=== PATIENT | female | born 1995 | race Caucasian/White ===

== ENCOUNTER 2024-03-07 10:00 | Outpatient (CLI) | payer OTHER, SELFPAY ==
--- NOTE | ~2024-03-07 | XR_ITS ---
EXAMINATION: XR hysterosalpingogram DATE: 03/07/2024 13:42 CDT INDICATION: Infertility TECHNIQUE: Fluoroscopy was provided for a hysterosalpingogram performed by Dr. Brooks. FINDINGS: There is normal intraluminal morphology of the uterus. The fallopian tubes are normal in a ppearance and are widely patent, with free spill into the peritoneal cavity from both sides. IMPRESSION: 1. Normal hysterosalpingogram. The uterus demonstrates normal intraluminal morphology and both fall opian tubes are patent. Reviewed, dictated and finalized at location A. IMPRESSION: 1. Normal hysterosalpingogram. The uterus demonstrates normal intraluminal mo rphology and both fallopian tubes are patent.
[2024-03-07 10:50] LABS: Beta HCG Quantitative < 2.39 mIU/ML
--- NOTE | 2024-03-07 11:59 | P.OP_ITS ---
Procedure Note - Detailed Date of Procedure 03/07/24 Pre-op Diagnosis INFERTILITY Post-op Diagnosis Same Procedure Performed [facility] [place] Ryan Brooks MD Anesthesia None Findings Bilateral spill and fill. Description of Procedure Patient position in lithotomy position. Speculum inserted. Catheter inserted into uterine cavity. Balloon insufflated. Radiologist performed Fluoro and the dye was injected. Bilateral spill and fill noted. The balloon was deflated and dye instilled. Cavity normal. Patient tolerated procedure well. Estimated Blood Loss 0 Drains No Packing No Complications No immediate complications Condition Stable [facility] Billing Surgery - Charge Forward: Surgery Billing
== END 2024-03-07 10:01 | disposition home or self-care (01) ==
PROVIDERS: PCP Otolaryngology; Visit Provider Obstetrics & Gynecology
DX: N97.9 Female infertility, unspecified (principal)
CPT/HCPCS: 36415; 58340; 74740; 84702; Q9966

== ENCOUNTER 2025-01-22 15:38 | Outpatient (CLI) | payer BC, SELFPAY ==
--- NOTE | ~2025-01-22 | US_ITS ---
EXAMINATION: US OB <=14 wk fetus w TV DATE: 01/22/2025 22:38 CDT INDICATION: Early COMPARISON: 07/18/2024 TECHNIQUE: Real-time transabdominal obstetric ultrasound. FINDINGS: 1 Estimated date of delivery by last menstrual period is 08/24/2025 The uterus measures 9.4 x 5.2 x 6.8 cm. A gestational sac is identified within the uterus. A pole is identified, with a crown-rump length that measures 3.01 cm, corresponding to an appro ximate gestational age of 10 weeks and 0 days. cardiac activity is identified at a rate of 169 bpm. The right ovary measures 2.9 x 1.6 x 2.3 cm. The left ovary measures 4.3 x 2.5 x 2.6 cm. Estimated date of delivery by ultrasound is 08/21/2025 IMPRESSION: Single intrauterine gestation with an approximate gestational age of 10 weeks and 0 days, with cardiac activity identified. Reviewed, dictated and finalized at location A. IMPRESSION: Single intrauterine gestation with an approximate gestational age of 10 weeks a nd 0 days, with cardiac activity identified.
== END 2025-01-22 15:39 | disposition home or self-care (01) ==
PROVIDERS: PCP Student in an Organized Health Care Education/Training Program; Visit Provider Student in an Organized Health Care Education/Training Program
DX: Z34.90 Encounter for supervision of normal pregnancy, unspecified, unspecified trimester (principal)
CPT/HCPCS: 76801; 76817

== ENCOUNTER 2025-08-12 07:54 | Outpatient (RCR) | payer BC, SELFPAY ==
[2025-07-31 09:32] VITALS: BP 113/73; PULSE 80
--- NOTE | ~2025-08-12 | US_ITS ---
EXAMINATION: US OB BPP wo non-stress DATE: 08/12/2025 09:34 INDICATION: Encounter for supervision of normal . Third trimester. TECHNIQUE: Real-time pelvic ultrasound was performed. COMPARISON: Ultrasound 04/03/2025, 01/22/2025 FINDINGS: There is a single living fetus in vertex presentation. The placenta is anterior. heart rate is 157 beats per minute (bpm). There is bilateral renal pelviectasis measuring 1.1 cm on the right and 2.0 cm on the left. The amniotic fluid index is 8.3 cm, which is normal. Biophysical profile performed by the technologist: breathing (30 sec sustained breathing in 30 minutes): 2 out of 2 movement (3 gross body movements in 30 minutes): 2 out of 2 tone (one episode of sonltjk-uvlgzpvwu-angljnh limb movement): 2 out of 2 Amniotic fluid pocket (2 cm): 2 out of 2 Total score: 8 out of 8 IMPRESSION: 1. Single living fetus in vertex presentation. 2. Biophysical profile 8 out of 8. 3. Bilateral renal pelviectasis. Reviewed, dictated and finalized at location E.
[2025-08-12 08:34] VITALS: BP 127/72; PULSE 101
[2025-08-12 09:00] VITALS: BP 127/73; PULSE 101
--- NOTE | 2025-08-12 09:28 | PC.NURSE ---
BPP 05/24
== END 2025-08-12 12:00 | disposition home or self-care (01) ==
LOC: ANHOBOP 07:54
PROVIDERS: Visit Provider Student in an Organized Health Care Education/Training Program
DX: O36.8130 Decreased fetal movements, third trimester, not applicable or unspecified (principal); Z3A.36 36 weeks gestation of pregnancy
CPT/HCPCS: 59025; 76819

== ENCOUNTER 2025-08-14 08:42 | Outpatient (CLI) | payer BC, SELFPAY ==
--- OUTSIDE RECORDS SUMMARY | 2025-08-14 09:14 | XMS_ITS | Patient Health Record ---
Author Organization [facility] Address [address] [place] [address] Care Team Providers Care Linux Programmer Name Role Phone LORIE HARDIN Unavailable [phone] Josafat Flores Unavailable Unavailable Reason For Referral No Information Plan Of Treatment No Information
[2025-08-14 09:47] LABS: Hematocrit 36.2 % (37.0-47.0); Hemoglobin 11.8 g/dL (12.0-15.0); Mean Corpuscular HGB Conc 32.6 g/dl (32-36); Mean Corpuscular Hemoglobin 29.5 pg (26-34); Mean Corpuscular Volume 90.5 fl (80-100); Platelet Count Result 237 k/mm3 (150-375); Red Blood Count 4.00 M/mm3 (4.2-5.4); White Blood Count 9.6 K/mm3 (4.5-10.0)
[2025-08-14 10:36] LABS: Syphilis IgG/IgM Antibody Non-Reactive (Nonreactive)
== END 2025-08-14 08:43 | disposition home or self-care (01) ==
LOC: ANHLAB 08:46
PROVIDERS: Visit Provider Student in an Organized Health Care Education/Training Program
DX: Z34.93 Encounter for supervision of normal pregnancy, unspecified, third trimester (principal); Z3A.00 Weeks of gestation of pregnancy not specified
CPT/HCPCS: 36415; 85027; 86593; 86850; 86900; 86901

== ENCOUNTER 2025-08-15 05:27 | Inpatient (IN) | payer BC, SELFPAY ==
[2025-08-14 08:40] VITALS: BP 107/63; PULSE 93; RESP 16; TEMP 36.3; O2SAT 100
--- NOTE | 2025-08-14 15:59 | PM.IMHP ---
H&P: HPI History of Present Illness Date/Time: 08/14/25 15:59 Chief Complaint: Intrauterine at term large for gestational age Narrative: 30 yo G1 who presents at 39w who primary for suspected macrosomia. EFW of 4573 g at 37w. Discussed macrosomia at length. also complicated by IVF with transfer on 12/04/24. Fetus is also noted to have bilateral dilated renal calyces. Review of Systems Cardiovascular: Cardiovascular: Denies chest pain, Denies leg edema, Denies palpitations, Denies dyspnea and Denies dyspnea on exertion Respiratory: Respiratory: Denies cough, Denies dyspnea and Denies dyspnea on exertion Gastrointestinal: Gastrointestinal: Denies abdominal pain, Denies constipation, Denies diarrhea, Denies nausea and Denies vomiting Genitourinary: Genitourinary: Denies hematuria, Denies urinary frequency, Denies dysuria, Denies pelvic pain, Denies urinary incontinence and Denies vaginal discharge Neurologic: Reports system reviewed and no additional complaints, except as documented Psychiatric: Psychiatric: Reports no additional psychiatric complaints Endocrine: Endocrine: Denies palpitations [facility] Surgical History Surgical History History of tonsillectomy and adenoidectomy Family History Family History Grandparent Diabetes mellitus Mother Diabetes mellitus Father Family history of hypercholesterolemia Hypertension Diabetes mellitus Social History Social History Smoking status: Never smoker Alcohol intake: current Substance use: never Substance use type: does not use Do You Feel Safe in your Home?: Yes Lack of Transportation: No Lack of Food: Never True Current Housing: I Have Housing Concerned About Future Housing: No Difficulty Paying Gas/Electric Bills: No Difficulty Paying for Meds: No Currently Unemployed: No Education: Bachelor's Degree Difficulty w/ Childcare or Family Care: No Living arrangements: with family Occupation/Education: occupation Gender identity (if verbalized by the patient): Female Sexual Orientation (if Verbalized by the Patient): Straight or Heterosexual Spiritual care concerns: No Meds Home Medications and Allergies Home Medications ?Medication ?Instructions ?Recorded ?Confirmed ?Type docosahexaenoic acid 200 mg mg PO 04/09/24 08/01/25 History capsule ( DHA) aspirin 81 mg tablet,delayed 81 mg PO DAILY 01/09/25 08/12/25 History release Allergies Allergy/AdvReac Type Severity Reaction Status Date / Time Penicillins Allergy Mild Hives Verified 08/12/25 10:17 Exam Const: General: no acute distress Eyes: EOM: EOMs intact bilaterally Neck: Neck: supple Thyroid: thyroid normal Chest: Breast/axilla inspection: normal inspection of the breasts Breast/axilla palpation: normal palpation of the breasts, normal palpation of the axillae and no axillary lymphadenopathy Resp: Effort & Inspection: normal respiratory effort Auscultation: clear to auscultation bilaterally Cardio: Rate: regular rate Rhythm: regular rhythm GI: Inspection: non-distended and other (Gravid) GI Palp: Yes Soft to palpation, No Tenderness to palpation present (GI) and No Guarding due to palpation present (GI) Auscultation: normal bowel sounds : Speculum Exam - Vagina: No vaginal bleeding OB/external & speculum: external exam normal; No vaginal bleeding Skin: General skin exam: normal color and no rashes or lesions noted Neuro: Cognition (Neuro): normal cognition Speech: normal speech Extrem: General: normal to inspection Psych: Mental Status: mental status grossly normal Affect: normal affect Assessment and Plan Assessment and plan (1) Supervision of high risk , unspecified, third trimester: Code(s): O09.93 - Supervision of high risk , unspecified, third trimester Status: Acute Assessment and Plan: 30 yo IVF- transfer on 12/04/2024. -low dose ASA, was on supplemental progesterone - PCOS - subchorionic bleed -bilateral dilated renal calyces seen on US (2) Conceived by in vitro fertilization: Code(s): Z78.9 - Other specified health status Status: Acute (3) Large for gestational age fetus: Status: Acute Assessment and Plan: EFW of 4500 at 37w risks, benefits, alternatives discussed will plan for primary
[2025-08-15] VITALS (63 sets, daily range): BP systolic 96–142; BP diastolic 51–100; PULSE 65–181; RESP 15–16; TEMP 36.6–37.2; O2SAT 97–100; BMI 39.7
--- OUTSIDE RECORDS SUMMARY | 2025-08-15 05:30 | XMS_ITS | Patient Health Record ---
Author Organization [facility] Address [address] [place] [address] Care Team Providers Care Metal Casket Assembler Name Role Phone LORIE HARDIN Unavailable [phone] Josafat Flores Unavailable Unavailable Reason For Referral No Information Plan Of Treatment No Information
[2025-08-15] MEDS: LACTATED RINGERS 1,000 ML 125 ML IV CONT ×2 (05:51→06:51)
--- NOTE | 2025-08-15 06:10 | LDADM ---
This patient, Catherine Beck, was admitted to Labor/Delivery/Recovery 120 on 08/15/25 at 05:27. Plans for labor, pain management and were discussed with patient. Patient/family oriented to hospital policies and general routines including ID bracelet, bed and alarms, visiting hours, pain management, procedures, bathroom and other care routines, personal items, smoking policy, room service/diet and guest tray routines, infant security routines, and visiting hours. Patient/Family are encouraged to report perceived risks to care and to ask questions if they do not understand what they are told or what they should do. See OBIX for further documentation.
[2025-08-15] MEDS: ACETAMINOPHEN 500 MG TABLET 1000 MG PO ×3 (06:30→18:51)
--- NOTE | 2025-08-15 07:12 | WPDHPUPDATE1 ---
History and Physical Update Update Date/Time: 08/15/25 07:12 History and Physical has been reviewed, including an updated exam of the patient. There are NO changes in the patient's condition. Risks, benefits, and alternatives have been discussed and questions answered. Patient agrees to proceed with procedure.
--- NOTE | 2025-08-15 07:13 | WPDANESEPPF ---
Anes - Initial Pre Proc Eval Procedure: Operation Date: 08/15/25 07:30 Proposed Procedures p Primary Section - Iraj Ortiz MD Date/Time: 08/15/25 07:13 Surgeon: Iraj Ortiz MD Pre Op Diagnosis: C/S Patient Data Age: 30 Gender: F Height: 1.75 m Weight: 122.016 kg Last Vital Signs Pulse 82 08/15/25 07:01 BP 140/77 08/15/25 07:01 Pulse Ox 98 08/15/25 07:12 O2 Del Method Room Air 08/14/25 08:00 Allergies Allergy/AdvReac Type Severity Reaction Status Date / Time Penicillins Allergy Mild Hives Verified 08/15/25 05:57 ultrasound gel AdvReac Mild Itching Uncoded 08/15/25 05:56 Home Medications ?Medication ?Instructions ?Recorded ?Confirmed ?Type docosahexaenoic acid 200 mg mg PO 04/09/24 08/01/25 History capsule ( DHA) aspirin 81 mg tablet,delayed 81 mg PO DAILY 01/09/25 08/12/25 History release Patient hx anesthesia problems: none Family hx anesthesia problems: none Results Review: All pre-operative results and documents have been reviewed as part of the pre-operative evaluation. [facility] Surgical History Surgical History History of tonsillectomy and adenoidectomy Family History Family History Grandparent Diabetes mellitus Mother Diabetes mellitus Father Family history of hypercholesterolemia Hypertension Diabetes mellitus Social History Social History Smoking status: Former smoker Second hand tobacco smoke exposure: Yes Alcohol intake: current Substance use: never Substance use type: does not use Do You Feel Safe in your Home?: Yes Lack of Transportation: No Lack of Food: Never True Current Housing: I Have Housing Concerned About Future Housing: No Difficulty Paying Gas/Electric Bills: No Difficulty Paying for Meds: No Currently Unemployed: No Education: Bachelor's Degree Difficulty w/ Childcare or Family Care: No Living arrangements: with family Occupation/Education: occupation Gender identity (if verbalized by the patient): Female Sexual Orientation (if Verbalized by the Patient): Straight or Heterosexual Spiritual care concerns: No Anes - Eval Final PreProcedure Day of Procedure 08/15/25 07:13 Patient weight: morbidly obese Lungs: normal air movement Airway: Mallampati scale class II Neurological: alert and oriented Last oral intake: >/= 8 hours ASA classification: III Emergent: no Anesthetic plan: proceed Anesthesia type and monitoring: regional spinal and standard monitoring Results Review: All pre-operative results and documents have been reviewed as part of the pre-operative evaluation. BMI 40, good health. Plts nml. Informed Consent: The patient's anesthetic plan and its attendant risks and benefits were discussed with the patient/family/POA. Questions were solicited and answers provided to the satisfaction of the patient/family/POA.
[2025-08-15] MEDS: ONDANSETRON INJ 4 MG/2 ML VIAL IV PUSH (07:14)
[2025-08-15] MEDS: FAMOTIDINE 20 MG/2 ML VIAL IV PUSH (07:15)
[2025-08-15] MEDS: ceFAZolin 3 GM/D5W 100 ML 100 ML IVPB (07:31)
--- NOTE | 2025-08-15 08:35 | W.PM.OBCSD ---
OB - Delivery Note Procedure Delivery date: 08/15/25 Pre-op diagnosis: Macrosomia Post-op Diagnosis: Same Induction method: None Delivery monitor: External FHT Prior to decision for section, ACOG/SMFM labor guidelines were considered and discussed with the patient and staff. Decision made to proceed with the section.: Yes Procedure Performed: Primary Primary branch: low cervical, transverse Surgeon: Iraj Ortiz MD Anesthesia type: Spinal Description of Procedure/Findings: The patient was taken to the operating room. A combined spinal epidural anesthesic was administered and found to be adequate at a t-10 level. The patient was placed in a supine position with a slight left lateral tilt. A kaur catheter was placed with return of clear urine. A Bovie grounding pad was placed. Surgical prep was performed and surgical drapes were placed. A surgical time out was performed. A Pfannenstiel skin incision was then made with the scalpel and carried through to the underlying layer of fascia. The fascia was then incised in the midline and the incision was extended laterally with the Roque scissors. The superior aspect of the fascia was then grasped with the Esteban clamps, elevated, and the underlying rectus muscles dissected off bluntly and sharply. Attention was then turned to the inferior aspect of this incision which, in a similar fashion, was grasped, tented up with the Esteban clamps, and the rectus muscles dissected off both bluntly and sharply. The rectus muscles were then in the midline. The peritoneum was identified and entered bluntly. The peritoneal incision was then extended superiorly and inferiorly with good visualization of the bladder. A ring retractor was placed for better visualization. The uterus was inspected for rotation. A low-transverse uterine incision was made sharply with the scalpel and entry was made into the uterine cavity. An amniotomy was made and copious amounts of clear fluid were noted on return. The uterine incision was extended laterally bluntly. The bladder blade was removed and the fetus was delivered atraumatically. The nose and mouth were suctioned with a bulb syringe. The umbilical cord was clamped twice and cut. The was handed off to the waiting staff. At the time of the delivery, the had good color, tone and grimace. The infant cried with minimal stimulation. A second segment of umbilical cord was clamped and cut for cord blood gasses. Cord blood was collected for determination of the blood type and for direct Khan. The placenta was delivered spontaneously without difficulty. The placenta appeared grossly normal and complete. The uterus was exteriorized and cleared of all clots and debris. The uterine incision was repaired using 0-monocryl suture in a running fashion. The uterine closure was inspected for hemostasis. Hemaderm powder was palced on the hysterotomy to ensure hemostasis. The posterior aspect of the uterus and the broad ligaments were inspected and the posterior cul-de-sac cleared of fluid and blood clots. The uterine closure was again inspected and found to be hemostatic. The uterus was returned to the abdominal cavity. The pericolic gutters were inspected and were cleared of all blood clots and debris. The uterine closure was then re inspected to ensure hemostasis as were all subfascial tissues. The peritoneum was closed using 3-0 vicryl in a running fashion. The fascia was reapproximated with 0-vicryl in a running fashion. The subcutaneous tissue was irrigated and hemostasis achieved with electrocautery. It was reapproximated with 3-0 vicryl in a running fashion. The skin was closed with 4-0 vicryl in a subcuticular fashion. A sterile dressing was applied to the wound. The patient tolerated the procedure well. Sponge, lap and needle counts were correct times three. The patient was taken to recovery in stable condition and without anticipated complications. Estimated Blood Loss: 900 Drains: No Packing: No Pathology: None sent Complications: No immediate complications Condition: Stable Disposition: Floor Baby Date of : 08/15/25 Gestational Age by Date: 39 gender: Male Weight (pounds): 9 Weight (ounces): 12 presentation: vertex position: Right Occiput Anterior Placenta delivery description: Manual Removal Cord Vessel Description: 3 Vessels
[2025-08-15] MEDS: OXYTOCIN 30 UNITS/NS 500 ML 30 UNITS/500 ML BAG 125 UNITS IV CONT (09:14)
[2025-08-15] MEDS: KETOROLAC 15 MG/ML VIAL (*BKC) IV PUSH ×3 (09:35→18:51)
--- NOTE | 2025-08-15 12:21 | PC.NURSE ---
Introductions were made - patient just arrived on unit. Mother states that initial feeding downstairs in L&D went great with a 30 minute feeding. Encouraged mother to call this RN with next feeding to assess latch and assist, if needed. Mother states understanding and will call for next feeding. Infant is on Blood Sugars for LGA.
--- NOTE | 2025-08-15 12:30 | PC.NURSE ---
Called to bedside to assist with latching infant. Upon entering room, was undressed and being held by mother. Mother handles confidently and is able to position infant appropriately for feeding. Mother attempted to put infant to breast in the cross cradle position and was unable to get infant to latch and remain comfortable. This RN showed mother how to use the football hold to obtain optimal latch. Infant was able to latch to the left breast in football position without pain to mother. Minimal assistance was needed from this RN. Primary nurse at bedside and updated.
[2025-08-15] MEDS: SIMETHICONE 80 MG TAB.CHEW PO ×2 (12:38→18:52)
[2025-08-15] MEDS: DEXTROSE 5%/0.45% SOD CHL 1,000 ML 125 ML IV CONT (13:39)
[2025-08-15] MEDS: DOCUSATE SODIUM 100 MG CAPSULE PO (18:51)
[2025-08-16 00:20] VITALS: BP 121/73; PULSE 75; RESP 18; TEMP 36.6; O2SAT 99
[2025-08-16] MEDS: ACETAMINOPHEN 500 MG TABLET 1000 MG PO ×5 (00:35→22:50)
[2025-08-16] MEDS: KETOROLAC 15 MG/ML VIAL (*BKC) IV PUSH (00:35)
[2025-08-16] MEDS: IBUPROFEN 600 MG TABLET PO ×4 (05:54→22:50)
[2025-08-16] MEDS: LIDOCAINE 5% PATCH 1 PATCH TRANSDERM (05:54)
[2025-08-16 08:35] VITALS: BP 123/72; PULSE 79; RESP 16; TEMP 37.2; O2SAT 98
[2025-08-16] MEDS: SIMETHICONE 80 MG TAB.CHEW PO ×3 (09:07→17:02)
[2025-08-16] MEDS: MULTIVIT/MIN/PREN/FOL AC/IRON TABLET 1 TAB PO (09:08)
[2025-08-16] MEDS: DOCUSATE SODIUM 100 MG CAPSULE PO ×2 (09:08→17:02)
[2025-08-16 10:36] LABS: Hematocrit 25.4 % (37.0-47.0); Hemoglobin 8.3 g/dL (12.0-15.0); Immature Granulocyte Percent A 0.5 % (0-0.5); Lymphocytes Absolute Auto 2.09 K/mm3 (0.9-3.2); Mean Corpuscular HGB Conc 32.7 g/dl (32-36); Mean Corpuscular Hemoglobin 29.7 pg (26-34); Mean Corpuscular Volume 91.0 fl (80-100); Nucleated Red Blood Cells Absolute Auto 0.000 K/mm3 (0.0-0.012); Nucleated Red Blood Cells Perc 0.0 % (0.0-0.2); Platelet Count Result 216 k/mm3 (150-375); Red Blood Count 2.79 M/mm3 (4.2-5.4); White Blood Count 10.4 K/mm3 (4.5-10.0)
--- NOTE | 2025-08-16 12:09 | P.DS_ITS ---
DS: Admitting Diagnosis Discharge Date 08/17/2025 Admitting Diagnosis DS: Discharge Diagnosis Discharge Diagnosis (1) delivery delivered: Code(s): O82 - Encounter for delivery without indication Status: Acute OB - DS: Summary OB Procedures : None OB Procedures Intrapartum: OB Procedures: : None Peripartum Data Procedures: Procedures Operation Date: 08/15/25 07:30 Actual Procedure Side Surgeon p Section Not Applicable Iraj Ortiz MD Time Spent with Patient Time attestation: Total time spent providing and/or coordinating discharge services: DS: Data Data Completed and Pending Labs on day of discharge: Labs from last 24 hours 08/16/25 04:42 WBC 10.4 H RBC 2.79 L Hgb 8.3 L D Hct 25.4 L MCV 91.0 MCH 29.7 MCHC 32.7 RDW 13.9 Plt Count 216 MPV 10.5 H Immature Gran % (Auto) 0.5 Neut % (Auto) 66.1 Lymph % (Auto) 20.1 [place] % (Auto) 10.6 H Eos % (Auto) 2.4 Baso % (Auto) 0.3 Lymph # (Auto) 2.09 [place] # (Auto) 1.1 H Eos # (Auto) 0.3 Baso # (Auto) 0.0 Abs Immat Gran (auto) 0.05 H Absolute Neuts (auto) 6.9 H Absolute Nucleated RBC 0.000 Nucleated RBC % 0.0 Discharge Plan Discharge Discharging Clinician: Iraj Ortiz Patient Disposition: Home Activity: as tolerated and pelvic rest Diet: regular Patient Instructions: Antibiotic Form, (DC) Patient Language: Sammarinese Stand Alone Forms: General Discharge Information Follow-up/Referrals: Iraj Ortiz MD [Physician, DIRECTOR CASE MANAGEMENT] Discharge Medications: New oxycodone-acetaminophen 5-325 mg tablet 1 tablet PO Q6H PRN (Reason: pain) Qty: 28 0RF ibuprofen 600 mg tablet 600 mg PO Q6H PRN (Reason: pain) Qty: 30 0RF Continued aspirin 81 mg tablet,delayed release (DR/EC) 81 mg PO DAILY DHA 200 mg capsule PO Date of admission: 08/15/25 05:27 Primary Care Provider: UNKNOWN,DOCTOR Admitting Provider: Iraj Ortiz Attending physician on admission: Iraj Ortiz Condition: Stable
--- NOTE | 2025-08-16 12:42 | PM.OBDSVD ---
DS: Admitting Diagnosis Discharge Date 08/17/25 Admitting Diagnosis intrauterine at term large for gestational age DS: Discharge Diagnosis Discharge Diagnosis (1) delivery delivered: Code(s): O82 - Encounter for delivery without indication Status: Acute OB - DS: Summary OB Procedures : None OB Procedures Intrapartum: OB Procedures: : None Peripartum Data Delivery Method: Section Procedures: Procedures Operation Date: 08/15/25 07:30 Actual Procedure Side Surgeon p Section Not Applicable Iraj Ortiz MD complications: none Status at Discharge Functional status at discharge: independent ambulation Overall status at discharge: patient is progressing back to baseline Time Spent with Patient Time attestation: Total time spent providing and/or coordinating discharge services: Time spent: Less than 30 minutes Exam Const: General: comfortable and no acute distress Resp: Effort & Inspection: normal respiratory effort Auscultation: clear to auscultation bilaterally Cardio: Rate: regular rate GI: Inspection: non-distended GI Palp: Yes Soft to palpation, No Firmness to palpation present (GI), Yes Tenderness to palpation present (GI) (mild tenderness over incision ) and No Guarding due to palpation present (GI) Auscultation: normal bowel sounds Psych: Appearance: grossly normal Mental Status: mental status grossly normal DS: Data Data Completed and Pending Labs on day of discharge: Labs from last 24 hours 08/16/25 04:42 WBC 10.4 H RBC 2.79 L Hgb 8.3 L D Hct 25.4 L MCV 91.0 MCH 29.7 MCHC 32.7 RDW 13.9 Plt Count 216 MPV 10.5 H Immature Gran % (Auto) 0.5 Neut % (Auto) 66.1 Lymph % (Auto) 20.1 [place] % (Auto) 10.6 H Eos % (Auto) 2.4 Baso % (Auto) 0.3 Lymph # (Auto) 2.09 [place] # (Auto) 1.1 H Eos # (Auto) 0.3 Baso # (Auto) 0.0 Abs Immat Gran (auto) 0.05 H Absolute Neuts (auto) 6.9 H Absolute Nucleated RBC 0.000 Nucleated RBC % 0.0 Discharge Plan Discharge Discharging Clinician: Iraj Ortiz Patient Disposition: Home Activity: as tolerated and pelvic rest Diet: regular Patient Instructions: Antibiotic Form, (DC) Patient Language: Khmer Stand Alone Forms: General Discharge Information Follow-up/Referrals: Iraj Ortiz MD [Physician, BUSINESS OFFICE ASSISTANT] Discharge Medications: New oxycodone-acetaminophen 5-325 mg tablet 1 tablet PO Q6H PRN (Reason: pain) Qty: 28 0RF ibuprofen 600 mg tablet 600 mg PO Q6H PRN (Reason: pain) Qty: 30 0RF Continued aspirin 81 mg tablet,delayed release (DR/EC) 81 mg PO DAILY DHA 200 mg capsule PO Date of admission: 08/15/25 05:27 Primary Care Provider: UNKNOWN,DOCTOR Admitting Provider: Iraj Ortiz Attending physician on admission: Iraj Ortiz Condition: Stable
--- NOTE | 2025-08-16 18:36 | WPDANLDPN2 ---
Anes-Prog Note L&D Date/Time: 08/16/25 18:36 Comfortable throughout: section Neuraxial method: spinal Epidural/Spinal procedure site: clean & non-tender Neuro status: Neuro function grossly intact. Cardiovascular status: normal Respiratory status: normal Airway patency: baseline Mental status: baseline Post-Op hydration status: normal Vital Signs: Last Vital Signs Temp 99 F 08/16/25 08:35 Pulse 79 08/16/25 08:35 Resp 16 08/16/25 08:35 BP 123/72 08/16/25 08:35 Pulse Ox 98 08/16/25 08:35 O2 Del Method Room Air 08/15/25 19:00 Pain score (VAS): 0/10 I/O: Intake & Output 08/16/25 08/16/25 08/16/25 07:59 15:59 23:59 Intake Total 240 Output Total 1225 600 Balance -1225 -360 Post-procedural complaints: none Patient feedback: Patient satisfied with anesthetic care.
--- NOTE | 2025-08-16 18:36 | WPDANLDNPN2 ---
Anes-Prog Note L&D-Neuraxial Date/Time: 08/16/25 18:36 Neuraxial medications: intrathecal PF morphine Opiod-related complaints: none Patient feedback: Patient satisfied with post-operative pain management.
[2025-08-16 19:30] VITALS: BP 138/75; PULSE 88; RESP 18; TEMP 36.3; O2SAT 97
[2025-08-17] MEDS: IBUPROFEN 600 MG TABLET PO ×2 (05:22→11:54)
[2025-08-17] MEDS: ACETAMINOPHEN 500 MG TABLET 1000 MG PO ×2 (05:23→11:53)
[2025-08-17 07:30] VITALS: BP 117/65; PULSE 80; RESP 16; TEMP 36.4; O2SAT 98
[2025-08-17] MEDS: SIMETHICONE 80 MG TAB.CHEW PO ×2 (08:23→11:53)
[2025-08-17] MEDS: MULTIVIT/MIN/PREN/FOL AC/IRON TABLET 1 TAB PO (08:23)
[2025-08-17] MEDS: DOCUSATE SODIUM 100 MG CAPSULE PO (08:23)
--- NOTE | 2025-08-17 10:48 | PC.NURSE ---
Patient viewed the discharge video Mother & Baby Care, The First Two Weeks. Patient was given the opportunity and encouraged to ask questions. Patient verbalized understanding of information shared and has been given the mother/baby guide for home reference.
--- NOTE | 2025-08-17 11:36 | P.PNOB_ITS ---
OB - PN: Subj Subjective Date/time seen: 08/17/25 11:36 Patient comments: pain well controlled, tolerating diet and flatus present baby status: doing well OB - PN: Obj Data Labs 08/16/25 04:42 OB - PN A/P Assessment and Plan (1) delivery delivered: Code(s): O82 - Encounter for delivery without indication Status: Acute Assessment and Plan: postop day 2. Doing well. Request discharge today. Time Spent With Patient Time: Total time spent is greater than 50% in coordination of care (as documented) at patient's floor/unit and/or counseling patient: Exam 2 Const: General: comfortable and no acute distress Resp: Effort & Inspection: normal respiratory effort GI: Other: Fundus firm nontender incision intact Neuro: General: patient oriented x3 Extrem: General: normal to inspection and no calf tenderness Psych: Mental Status: mental status grossly normal
--- NOTE | 2025-08-17 11:45 | PC.NURSE ---
Consulted with mother concerning needs and she shared her ability to independently latch infant optimally. She has latch on soreness that dissipates as baby nurses. Reviewed latch on versus continuous pain. Mother is feeding appropriately for growth of infant and understands stimulating to eat if needed. Infant has had appropriate feedings in the last 24 hours meets the outcomes for weight, output, blood sugar and jaundice at this time. Reinforced understanding of milk production, transition of milk, signs of adequate intake, transition of stool, prevention/relief of engorgement, mastitis, responsive watching for feeding cues, community resources and [place] services contact number, and when to call a provider using the resource of the feeding sheet along with the mom and baby guide. Mother voiced understanding of the information shared, is confident to continue effectively her at home, when to call for assistance, denies any additional assistance or education at this time. Reported to the Primary RN.
[2025-08-19 10:22] VITALS: BP 125/84; PULSE 80; RESP 18; TEMP 36.9; O2SAT 100
== END 2025-08-17 12:27 | disposition home or self-care (01) | DRG 788 ==
LOC: ANHOB2 08-17 10:22 → ANHLDR 08-19 12:45
PROVIDERS: Admitting Provider Student in an Organized Health Care Education/Training Program; Visit Provider Obstetrics & Gynecology
PROC: 10D00Z1 Extraction of Products of Conception, Low, Open Approach (ICD-10-PCS; CPT 59514; principal; 2025-08-15 07:30)
DX: O36.63X0 Maternal care for excessive fetal growth, third trimester, not applicable or unspecified (principal); O99.284 Endocrine, nutritional and metabolic diseases complicating childbirth; E28.2 Polycystic ovarian syndrome; Z3A.37 37 weeks gestation of pregnancy; Z37.0 Single live birth; Z79.82 Long term (current) use of aspirin; Z88.0 Allergy status to penicillin
CPT/HCPCS: 36415; 59025; 76819; 85025; 85027; 86593; 86850; 86900; 86901; A9270; J0690; J1100; J1885; J2274; J2405; J2590; J7120